=== PATIENT | male | born 1965 | race Caucasian/White ===

== ENCOUNTER 2018-12-17 14:33 | Observation (INO) | payer OTHER ==
[~2018-12-17] VITALS: Ht 175.3 cm; Wt 101.6 kg
[2018-12-17] MEDS ORDERED: CRESTOR5 MG PO (14:38)
[2018-12-17] MEDS ORDERED: ASPIR LOW81 MG PO (14:38)
[2018-12-17] MEDS ORDERED: FISH OIL1 IU PO (14:38)
[2018-12-17] MEDS ORDERED: MULTIVITAMIN1 SGL PO (14:38)
[2018-12-17 15:11] LABS: HEMATOCRIT 45.3 % (42.0-52.0); HEMOGLOBIN 15.5 g/dL (13.5-18.0); MEAN CELL VOLUME 86 fl (78-100); MEAN CORPUSCULAR HEMOGLOBIN 29 pg (27-31); MEAN CORPUSCULAR HGB CONC 34 g/dL (33-37); MEAN PLATELET VOLUME 11.1 fl (7.4-10.4); PLATELET COUNT 239 K/mm3 (130-400); RED CELL DISTRIBUTION WIDTH 13.1 % (11.5-14.5); WHITE BLOOD COUNT 13.3 K/mm3 (4.8-10.8)
[2018-12-17 15:28] LABS: ALBUMIN 4.4 g/dL (3.5-5.0); ALT/SGPT 17 U/L (21-72); AST-SGOT 54 U/L (17-59); CALCIUM 9.3 mg/dL (8.4-10.2); CARBON DIOXIDE 24 mmol/L (22-30); GLUCOSE 165 mg/dL (75-110); POTASSIUM 4.1 mmol/L (3.6-5.0); SODIUM 142 mmol/L (137-145); TOTAL BILIRUBIN 0.9 mg/dL (0.2-1.3); TOTAL PROTEIN 7.6 g/dL (6.3-8.2)
[2018-12-17 15:29] LABS: ALCOHOL IN-HOUSE < 10 mg/dL
[2018-12-17 15:37] LABS: LYMPHOCYTE 12 % (20-51); MONOCYTE 3 % (3-10); NEUTROPHILS 83 % (42-75)
[2018-12-17 17:09] VITALS: BP 142/86
[2018-12-17 18:25] LABS: URINE APPEARANCE CLOUDY; URINE BILIRUBIN NEGATIVE (NEGATIVE); URINE BLOOD NEGATIVE (NEGATIVE); URINE COLOR YELLOW; URINE GLUCOSE NEGATIVE (NEGATIVE); URINE KETONE 2+ (NEGATIVE); URINE LEUKOCYTE ESTERASE NEGATIVE (NEGATIVE); URINE MUCUS PRESENT (NOT PRESENT); URINE NITRATE NEGATIVE (NEGATIVE); URINE PROTEIN(semi-quant) TRACE mg/dL (NEGATIVE); URINE UROBILINOGEN NORMAL (NORMAL)
[2018-12-17 19:59] VITALS: BP 146/98
[2018-12-17 20:01] VITALS: BP 146/98
[2018-12-17 22:38] VITALS: BP 115/82
[2018-12-18 02:31] VITALS: BP 109/72
[2018-12-18 06:24] VITALS: BP 108/70
[2018-12-18 10:13] LABS: EOS # 0.1 (0.04-0.40); EOS % 0.7 % (0.0-4.0); HEMATOCRIT 43.7 % (42.0-52.0); HEMOGLOBIN 14.5 g/dL (13.5-18.0); LYMPH# 1.5 (1.50-4.00); MEAN CELL VOLUME 88 fl (78-100); MEAN CORPUSCULAR HEMOGLOBIN 29 pg (27-31); MEAN CORPUSCULAR HGB CONC 33 g/dL (33-37); MONO # 0.8 (0.20-0.80); PLATELET COUNT 244 K/mm3 (130-400); RED BLOOD COUNT 4.95 M/mm3 (4.20-5.60); RED CELL DISTRIBUTION WIDTH 13.5 % (11.5-14.5); WHITE BLOOD COUNT 8.3 K/mm3 (4.8-10.8)
[2018-12-18 10:42] LABS: CALCIUM 8.9 mg/dL (8.4-10.2); POTASSIUM 3.8 mmol/L (3.6-5.0)
[2018-12-18 10:47] VITALS: BP 123/74
[2018-12-18] MEDS ORDERED: ANTIVERT12.5 M1 PO (11:29)
[2018-12-18] MEDS ORDERED: AUGMENTIN 875-1 EAC1 PO (11:30)
== END 2018-12-18 11:44 | disposition home or self-care (01) ==
LOC: ED 14:33 → MED/SURG 19:53
PROVIDERS: ADMIT Physician Assistant
DX: R42 Dizziness and giddiness (principal); R55 Syncope and collapse; R11.2 Nausea with vomiting, unspecified; J01.90 Acute sinusitis, unspecified; I25.10 Atherosclerotic heart disease of native coronary artery without angina pectoris; E86.0 Dehydration; Z79.82 Long term (current) use of aspirin; Z95.1 Presence of aortocoronary bypass graft; Z85.47 Personal history of malignant neoplasm of testis; Z90.79 Acquired absence of other genital organ(s)
CPT/HCPCS: G0378; J1650; J2405; J7030